=== PATIENT | female | born 1945 | race Caucasian/White ===

== ENCOUNTER → 2018-06-07 | Outpatient (CLI) | payer MEDICARE ==
--- NOTE | 2018-06-08 11:59 | BD ---
EXAMINATION TYPE: Axial Bone Density DATE OF EXAM: 06/07/2018 COMPARISON: NONE CLINICAL HISTORY: Height: 64 Weight: 229.4 FRAX RISK QUESTIONS: Alcohol (3 or more units per day): no Family History (Parent hip fracture): no Glucocorticoids (More than 3mos): no (Ex: prednisone, prednisolone, methylprednisolone, dexamethasone, and hydrocortisone). History of Fracture in Adulthood: no Secondary Osteoporosis: 1. Type 1 Diabetes: no 2. Hyperthyroidism: no 3. Menopause before 45: yes 4. Malnutrition: no 5. Chronic liver disease: no Rheumatoid Arthritis: no Current Tobacco Use: no RISK FACTORS HISTORY OF: Surgery to Spine/Hip(right/left)/Wrist (right/left): spine When: 2016 Family History of Osteoporosis: no Active: sometimes Diet low in dairy products/other sources of calcium: yes Postmenopausal woman: hysterectomy age 44 Take estrogen and/or progesterone medications: yes How lon years Lost more than 2 inches in height since high school: yes MEDICATIONS: blood pressure, omeprazole, gabapentin , estropipate Thyroid Medications: synthroid How Lon years Additional History: pt has lupus, neuropathy EXAM MEASUREMENTS: Bone mineral densitometry was performed using the [employer] System. Bone mineral density about the R hip (g/cm2): 1.128 Bone mineral density about the L hip (g/cm2): 1.090 T Score values are as follows: -----R Neck: 0.4 -----L Neck: 0.4 -----R Total: 1.0 -----L Total: 1.1 Bone mineral density baseline Bone mineral density about the L Wrist (g/cm2): 0.619 T Score values are as follows: -----Dist. R+U: 1.5 -----Prox. R+U: -1.6 -----Radius total: -0.9 Bone mineral density baseline IMPRESSION: Osteopenia (T Score between -2.5 and -1). There is slightly increased risk of fracture and the patient may be considered for treatment. Re-Screen 2-5 years. NOTE: T-SCORE=SD OF THE YOUNG ADULT MEAN.
--- NOTE | 2018-06-09 09:57 | MM ---
Reason for exam: screening (asymptomatic). Last mammogram was performed 1 year and 2 months ago. History: Family history of breast cancer in sister and breast cancer in grandmother. Benign excisional biopsy of both breasts. Taking estrogen for 28 years. Physical Findings: A clinical breast exam by your physician is recommended on an annual basis and results should be correlated with mammographic findings. MG 3D Screening Mammo W/Cad Bilateral CC and MLO view(s) were taken. Prior study comparison: April 07, 2017, mammogram. March 22, 2016, mammogram. The breast tissue is heterogeneously dense. This may lower the sensitivity of mammography. Finding: There are typically benign round, diffuse/scattered calcifications in both breasts. No significant changes in finding since April 07, 2017 and March 22, 2016. ASSESSMENT: Benign, BI-RAD 2 RECOMMENDATION: Routine screening mammogram of both breasts in 1 year.
== END | disposition home or self-care (01) ==
LOC: EDUNIT# 15:40 → RADMAMWWP 15:58
PROVIDERS: ATTEND Internal Medicine Geriatric Medicine
DX: Z12.31 Encounter for screening mammogram for malignant neoplasm of breast (principal); M85.832 Other specified disorders of bone density and structure, left forearm
CPT/HCPCS: 77063; 77067; 77080

== ENCOUNTER → 2019-08-23 | Outpatient (CLI) | payer MEDICARE, OTHER ==
--- NOTE | 2019-08-24 13:22 | MM ---
Reason for exam: screening (asymptomatic). Last mammogram was performed 1 year and 3 months ago. History: Patient is postmenopausal. Family history of breast cancer in sister and breast cancer in grandmother. Benign excisional biopsy of both breasts. Taking estrogen for 28 years. Physical Findings: A clinical breast exam by your physician is recommended on an annual basis and results should be correlated with mammographic findings. MG 3D Screening Mammo W/Cad Bilateral CC and MLO view(s) were taken. Prior study comparison: June 07, 2018, bilateral MG 3d screening mammo w/cad. April 07, 2017, mammogram. The breast tissue is heterogeneously dense. This may lower the sensitivity of mammography. There are similar benign appearing bilateral calcifications back to 2016. No suspicious abnormality. No significant changes when compared with prior studies. ASSESSMENT: Benign, BI-RAD 2 RECOMMENDATION: Routine screening mammogram of both breasts in 1 year.
== END | disposition home or self-care (01) ==
LOC: RADMAMWWP 12:36
PROVIDERS: ATTEND Internal Medicine Geriatric Medicine
DX: Z12.31 Encounter for screening mammogram for malignant neoplasm of breast (principal)
CPT/HCPCS: 77063; 77067

== ENCOUNTER → 2020-03-19 | Outpatient (CLI) | payer MEDICARE, OTHER ==
--- NOTE | 2020-03-20 16:00 | ECHOF ---
Referral Reason:R60.9 edema MEASUREMENTS -------- HEIGHT: 162.6 cm WEIGHT: 108.9 kg BP: IVSd: 1.3 cm (0.6 - 1.1) LVIDd: 2.9 cm (3.9 - 5.3) LVPWd: 1.6 cm (0.6 - 1.1) IVSs: 1.8 cm LVIDs: 2.0 cm LVPWs: 2.2 cm RVIDd: 3.3 cm (< 3.3) LAESV Index (A-L): 27.87 ml/m MV E Khanh: 0.58 m/s MV DecT: 229 ms MV A Khanh: 0.82 m/s MV E/A Ratio: 0.71 RAP: 5.00 mmHg RVSP: 25.69 mmHg FINDINGS -------- Sinus rhythm. This was a technically good study. The left ventricular size is normal. There is moderate concentric left ventricular hypertrophy. O verall left ventricular systolic function is normal with, an EF between 55 - 60 %. The diastolic fi lling pattern is normal for the age of the patient 13.91. The right ventricle is mildly enlarged. The left atrial size is normal. Normal LA size by volume 22+/-6 ml/m2. The right atrial size is normal. The aortic valve is trileaflet and appears structurally normal. The mitral valve is normal. There is trace mitral regurgitation. The tricuspid valve appears structurally normal. Mild tricuspid regurgitation present. Right vent ricular systolic pressure is normal at < 35 mmHg. There is no pulmonic regurgitation present. The aortic root size is normal. Normal inferior vena cava with normal inspiratory collapse consistent with estimated right atrial pre ssure of 5 mmHg. There is no pericardial effusion. CONCLUSIONS -------- 1. Sinus rhythm. 2. This was a technically good study. 3. The left ventricular size is normal. 4. There is moderate concentric left ventricular hypertrophy. 5. Overall left ventricular systolic function is normal with, an EF between 55 - 60 %. 6. The diastolic filling pattern is normal for the age of the patient 13.91 7. The right ventricle is mildly enlarged. 8. The left atrial size is normal. 9. Normal LA size by volume 22+/-6 ml/m2. 10. The right atrial size is normal. 11. The aortic valve is trileaflet and appears structurally normal. 12. The mitral valve is normal. 13. There is trace mitral regurgitation. 14. The tricuspid valve appears structurally normal. 15. Mild tricuspid regurgitation present. 16. Right ventricular systolic pressure is normal at < 35 mmHg. 17. There is no pulmonic regurgitation present. 18. The aortic root size is normal. 19. Normal inferior vena cava with normal inspiratory collapse consistent with estimated right atrial pressure of 5 mmHg. 20. There is no pericardial effusion. RATING OFFICER: Elaine Brito RDCS
== END | disposition home or self-care (01) ==
LOC: RADECHMAIN 12:11
PROVIDERS: ATTEND Internal Medicine Geriatric Medicine
DX: I08.1 Rheumatic disorders of both mitral and tricuspid valves (principal)
CPT/HCPCS: 93306

== ENCOUNTER → 2020-03-31 | Outpatient (CLI) | payer MEDICARE, OTHER ==
--- NOTE | 2020-03-31 09:09 | XR ---
Right foot HISTORY: L 97.512, G 60.3, neuropathy and tissue breakdown 3 views of the right foot Mild hallux valgus deformity is present with soft tissue swelling. Bone mineralization is reduced. No fracture or dislocation. No periostitis to suggest osteomyelitis. There is a plantar calcaneal spur. Degenerative changes are present at the tibiotalar joint, intertarsal joints. Soft tissue swelling n oted at the second digit distally. Digits are flexed which may limit sensitivity. IMPRESSION: Osteoarthritic changes, osteopenia. Plantar calcaneal spur. Soft tissue swelling.
== END | disposition home or self-care (01) ==
LOC: LABWHC1 08:03
PROVIDERS: ATTEND Podiatrist
DX: M19.071 Primary osteoarthritis, right ankle and foot (principal); M85.871 Other specified disorders of bone density and structure, right ankle and foot; M79.89 Other specified soft tissue disorders; L97.512 Non-pressure chronic ulcer of other part of right foot with fat layer exposed; G60.3 Idiopathic progressive neuropathy
CPT/HCPCS: 36415; 84134

== ENCOUNTER → 2020-04-23 | Outpatient (CLI) | payer MEDICARE, OTHER ==
--- NOTE | 2020-04-23 12:52 | MR ---
EXAMINATION TYPE: MR cervical spine wo con DATE OF EXAM: 04/23/2020 COMPARISON: None HISTORY: Neck pain, headaches, ataxia TECHNIQUE: Multiplanar, multisequence images of the cervical spine were acquired. C2-C3: No evidence for degenerative disc disease. No disc bulge/herniation or protrusion. No Canal stenosis. Foramina are patent bilaterally. C3-C4: Mild foraminal encroachment is present left greater than right, posterior circumferential disc bulge causes mild anterior mass effect on the thecal sac, no significant spinal stenosis. C4-C5: Posterior extension of endplate disc complex causes anterior mass effect on the thecal sac wit hout significant spinal stenosis, there is left-sided foraminal encroachment C5-C6: Extension of endplate disc complex causes anterior mass effect on the thecal sac with mild spi nal stenosis. There is bilateral foraminal encroachment due to uncovertebral joint hypertrophy, facet arthropathy change. C6-C7: Posterior extension endplate disc complex causes mild anterior mass effect on the thecal sac. No significant central stenosis. There is mild foraminal encroachment present. C7-T1: There is an anterolisthesis grade 1 C7-T1, minimal posterior disc bulge causes slight anterior mass effect on the thecal sac, mild to moderate spinal stenosis. Some foraminal encroachment is docu mented by the listhesis. Cervical segments are intact. There is anterolisthesis grade 1 C4-5, C3-4, retrolisthesis grade 1 C5 -6, there is a spinal curvature present in the thoracic spine, cervical spine. Cervical spinal cord is of normal signal. Cervical vertebral bodies show preserved height. There is multilevel spondylosis with endplate discogenic marrow signal change. Loss of disc height signal is greatest at C4-5, C5-6 and C6-7, C7-T1 greater than C3-4. Craniovertebral junction relationships are within normal limits. There is multilevel spondylosis. IMPRESSION: Generative disc disease, multilevel foraminal encroachment.
== END | disposition home or self-care (01) ==
LOC: RADMRIMAIN 09:37
PROVIDERS: ATTEND Psychiatry & Neurology Neurology
DX: M50.00 Cervical disc disorder with myelopathy, unspecified cervical region (principal)
CPT/HCPCS: 72141

== ENCOUNTER → 2020-04-24 | Outpatient (CLI) | payer MEDICARE, OTHER ==
--- NOTE | 2020-04-24 12:26 | MR ---
EXAMINATION TYPE: MR tspine/lspine wo/w con DATE OF EXAM: 04/24/2020 COMPARISON: None HISTORY: Myelopathy, ataxia, imbalance, hx surgery TECHNIQUE: Multiplanar, multisequence images of the thoracic and lumbar spine is performed without and with IV c ontrast, utilizing 10 mL intravenous Gadavist FINDINGS: Lumbar spine: There is extensive artifact due to patient's metallic hardware, posterior fusion change s are present L1-L4, there is ankylosis at L4-5. Anterolisthesis grade 1, laminectomies are present a t L5. There is no evident spinal stenosis. L5-S1 shows marked facet arthropathy. Circumferential posterior disc bulge is present which may conta ct the proximal S1 nerve roots. Circumferential lateral extension encroaches upon the foramina. L4-5: Listhesis contributes to cause some foraminal encroachment left greater than right. No evident disc herniation. Mild mass effect on the anterior cord due to the listhesis. There is some facet arth ropathy. L3-4: No disc herniation. Laminectomies are present. No evident foraminal encroachment. L2-3: No evident foraminal encroachment or disc herniation. L1-2: No evident foraminal encroachment or disc herniation. No abnormal enhancement following contrast menstruation. The conus is at T12-L1. Shows an unremarkabl e appearance. IMPRESSION: Postop changes and additional findings above. Facet arthropathy. Thoracic spine: Facet arthropathy changes are greatest at the lower thoracic spine but also at the melgar perior thoracic spine causing some posterior lateral mass effect on the thecal sac and C7-T1, T1-T2 3 , T3-4. There is a spinal curvature present. Thoracic vertebral bodies show mild anterior wedging at T6 and T7, mild kyphosis. There is multilevel spondylosis present. Loss of disc height signal is pres ent at the intervertebral levels with sparing of T11-12, T12-L1, there is multilevel endplate discoge carmina marrow signal change, there is normal cord signal. At T10-11 there is spinal stenosis present which is moderate to severe, hypertrophic changes of the f acets causes posterior lateral mass effect on the thecal sac, there is circumferential posterior exte nsion endplate disc complex, circumferential extension causes bilateral foraminal encroachment greate r on the left than on the right. Circumferential posterior disc bulge at T2-3 causes anterior mass effect on the thecal sac. No abnorm al enhancement following contrast administration. Thoracic cord signal is maintained. IMPRESSION: Degenerative disc disease, facet arthropathy.
== END | disposition home or self-care (01) ==
LOC: RADMRIMAIN 08:52
PROVIDERS: ATTEND Psychiatry & Neurology Neurology
DX: M51.26 Other intervertebral disc displacement, lumbar region (principal); M51.34 Other intervertebral disc degeneration, thoracic region; M47.816 Spondylosis without myelopathy or radiculopathy, lumbar region; M47.814 Spondylosis without myelopathy or radiculopathy, thoracic region; Z98.890 Other specified postprocedural states; Z98.1 Arthrodesis status; M43.26 Fusion of spine, lumbar region
CPT/HCPCS: 72157; 72158; A9585

== ENCOUNTER → 2020-10-06 | Outpatient (CLI) | payer MEDICARE, OTHER ==
--- NOTE | 2020-10-07 13:36 | MM ---
Reason for exam: screening (asymptomatic). Last mammogram was performed 1 year and 1 month ago. History: Patient is postmenopausal. Family history of breast cancer in sister and breast cancer in grandmother. Benign excisional biopsy of both breasts. Taking estrogen for 29 years. Physical Findings: A clinical breast exam by your physician is recommended on an annual basis and results should be correlated with mammographic findings. MG 3D Screening Mammo W/Cad Bilateral CC, MLO, and XCCL view(s) were taken. Prior study comparison: August 23, 2019, bilateral MG 3d screening mammo w/cad. June 07, 2018, bilateral MG 3d screening mammo w/cad. There are scattered fibroglandular densities. No significant changes when compared with prior studies. ASSESSMENT: Benign, BI-RAD 2 RECOMMENDATION: Routine screening mammogram of both breasts in 1 year.
== END | disposition home or self-care (01) ==
LOC: RADMAMWWP 15:38
PROVIDERS: ATTEND Internal Medicine Geriatric Medicine
DX: Z12.31 Encounter for screening mammogram for malignant neoplasm of breast (principal)
CPT/HCPCS: 77063; 77067

== ENCOUNTER → 2020-10-20 | Outpatient (CLI) | payer MEDICARE ==
--- NOTE | 2020-10-21 17:03 | BD ---
EXAMINATION TYPE: Axial Bone Density DATE OF EXAM: 10/20/2020 COMPARISON: NONE CLINICAL HISTORY: Height: 5 FT 3 IN Weight: 238 FRAX RISK QUESTIONS: Alcohol (3 or more units per day): NO Family History (Parent hip fracture): NO Glucocorticoids (More than 3mos): NO (Ex: prednisone, prednisolone, methylprednisolone, dexamethasone, and hydrocortisone). History of Fracture in Adulthood: NO Secondary Osteoporosis: 1. Type 1 Diabetes: NO 2. Hyperthyroidism: NO 3. Menopause before 45: YES 4. Malnutrition: NO 5. Chronic liver disease: NO Rheumatoid Arthritis: NOT KNOWN Current Tobacco Use: NO RISK FACTORS HISTORY OF: Surgery to Spine/Hip(right/left)/Wrist (right/left): SPINE SURG WITH HARDWARE When: MOST RECENT JUL 2020 Family History of Osteoporosis: NO Active: NO Diet low in dairy products/other sources of calcium: NO Postmenopausal woman: PART HYST AGE 44 Take estrogen and/or progesterone medications: YES How lon YEARS Lost more than 2 inches in height since high school: YES Frequent falls: NO MEDICATIONS: Thyroid Medications: YES Which medication: SYNTHROID How Long: OVER 30 YEARS Additional Medications: SYNTHROID, BLOOD PRESSURE MEDS, OMEPRAZOLE, GABAPENTIN, ESTOPIPATE Additional History:WALKS WITH A CANE FROM NEUROPATHY EXAM MEASUREMENTS: Bone mineral density about the R hip (g/cm2): 1.144 Bone mineral density about the L hip (g/cm2): 1.144 T Score values are as follows: -----R Neck: 0.8 -----L Neck: 0.8 -----R Total: 1.0 -----L Total: 1.1 Bone mineral density has: INCREASED 0.7 % since study of: 2018 Bone mineral density about the L Wrist (g/cm2): 0.718 T Score values are as follows: -----Dist. R+U: 1.7 -----Prox. R+U: 0.9 -----Radius total: 0.7 Bone mineral density has: INCREASED 30.9 % since study of: 2018 IMPRESSION: Normal (Values between +1 and -1 indicate normal bone mass). Consider repeating this study in 5 year s or sooner if there is some new clinical indication. NOTE: T-SCORE=SD OF THE YOUNG ADULT MEAN.
== END | disposition home or self-care (01) ==
LOC: RADBDWWP 16:06
PROVIDERS: ATTEND Internal Medicine Geriatric Medicine
DX: M81.0 Age-related osteoporosis without current pathological fracture (principal)
CPT/HCPCS: 77080

== ENCOUNTER → 2021-02-05 | Outpatient (CLI) | payer MEDICARE ==
--- NOTE | 2021-02-06 11:48 | ECHOF ---
Referral Reason:R60.9 Edema MEASUREMENTS -------- HEIGHT: 162.6 cm WEIGHT: 104.3 kg BP: RVIDd: 3.7 cm (< 3.3) IVSd: 1.3 cm (0.6 - 1.1) LVIDd: 3.9 cm (3.9 - 5.3) LVPWd: 1.1 cm (0.6 - 1.1) IVSs: 1.7 cm LVIDs: 2.0 cm LVPWs: 1.7 cm LAESV Index (A-L): 34.96 ml/m Ao Diam: 3.3 cm (2.0 - 3.7) AV Cusp: 1.8 cm (1.5 - 2.6) MV EXCURSION: 16.721 mm (> 18.000) MV EF SLOPE: 107 mm/s (70 - 150) EPSS: 0.6 cm MV E Khanh: 0.85 m/s MV DecT: 212 ms MV A Khahn: 0.65 m/s MV E/A Ratio: 1.32 RAP: 5.00 mmHg RVSP: 34.14 mmHg FINDINGS -------- Sinus rhythm. This was a technically adequate study. The left ventricular size is normal. There is mild concentric left ventricular hypertrophy. Overa ll left ventricular systolic function is normal with, an EF between 55 - 60 %. The diastolic fillin g pattern is normal for the age of the patient 11.61. The right ventricle is mildly enlarged. LA is moderately dilated 34-39 ml/m2 The right atrial size is normal. Interatrial and interventricular septum intact. The aortic valve is trileaflet and appears structurally normal. There is no evidence of aortic regu rgitation. There is no evidence of aortic stenosis. Hned-[id number]-[id number] mitral regurgitation is present. Mild tricuspid regurgitation present. There is borderline pulmonary artery hypertension. The righ t ventricular systolic pressure, as measured by Doppler, is 34.14mmHg. There is no pulmonic regurgitation present. The aortic root size is normal. IVC Not well visulized. There is no pericardial effusion. CONCLUSIONS -------- 1. The left ventricular size is normal. 2. There is mild concentric left ventricular hypertrophy. 3. Overall left ventricular systolic function is normal with, an EF between 55 - 60 %. 4. The right ventricle is mildly enlarged. 5. LA is moderately dilated 34-39 ml/m2 6. The right atrial size is normal. 7. Meri-pr-wqwsyiwt mitral regurgitation is present. 8. Mild tricuspid regurgitation present. 9. There is borderline pulmonary artery hypertension. BOILER BLOWER: Elaine Brito RDCS
== END | disposition home or self-care (01) ==
LOC: RADECHMAIN 15:46
PROVIDERS: ATTEND Internal Medicine Geriatric Medicine
DX: I08.1 Rheumatic disorders of both mitral and tricuspid valves (principal)
CPT/HCPCS: 93306

== ENCOUNTER → 2021-06-20 | Outpatient (CLI) | payer MEDICARE | END | disposition home or self-care (01) | LOC: LABWHC1 10:01 | PROVIDERS: ATTEND Psychiatry & Neurology Neurology | DX: E11.42 Type 2 diabetes mellitus with diabetic polyneuropathy (principal); G60.8 Other hereditary and idiopathic neuropathies; R26.9 Unspecified abnormalities of gait and mobility | CPT/HCPCS: 36415; 82607; 84295 ==

== ENCOUNTER → 2021-08-20 | Outpatient (CLI) | payer MEDICARE ==
--- NOTE | 2021-08-20 08:50 | CT ---
EXAMINATION TYPE: CT brain wo con, CT facial bones wo con DATE OF EXAM: 08/20/2021 HISTORY: COLE, Lt orbital swelling and pain post fall CT DLP: 1793 mGycm. Automated Exposure Control for Dose Reduction was Utilized. TECHNIQUE: CT scan of the head and facial bones are performed without contrast. COMPARISON: None. FINDINGS: There is no acute intracranial hemorrhage or midline shift identified. There is mild-to-m oderate diffuse ventricular and sulcal prominence consistent with diffuse age-related cerebral atroph y. There is mild low-attenuation in the periventricular white matter consistent with chronic small v essel ischemic change. Bilateral basal ganglia calcifications are present. The calvarium is intact. Visualized portion of mandible is intact. The temporomandibular joints are maintained bilaterally. Th e zygomatic arches are intact. The nasal bones are intact. The orbital floors and ho are intact bi laterally. The globes are intact bilaterally. Intraconal fat is preserved. The pterygoid plates are i ntact. The paranasal sinuses are grossly clear. Nasal septum slightly deviated to right of midline. IMPRESSION: 1. No acute intracranial hemorrhage or midline shift. There is mild to moderate diffuse age-related cerebral atrophy and mild chronic small vessel ischemic change noted. 2. No acute or subacute displaced facial bone fracture.
== END | disposition home or self-care (01) ==
LOC: RADCTMAIN 08:08
PROVIDERS: ATTEND Internal Medicine Geriatric Medicine
DX: I67.82 Cerebral ischemia (principal)
CPT/HCPCS: 70450; 70486

== ENCOUNTER → 2022-05-13 | Outpatient (CLI) | payer MEDICARE ==
--- NOTE | 2022-05-14 16:36 | MM ---
Reason for Exam: Screening (asymptomatic). Last mammogram was performed 1 year(s) and 7 month(s) ago. Patient History: Menarche at age 12. First Full-Term at age 24. Left ovary removed at age 44. Hysterectomy at age 44. Postmenopausal. Patient has history of breast feeding. Currently using Estrogen, for 29 years. Bilateral Benign Excisional Biopsy. Paternal grandmother had breast cancer. Sister had breast cancer under age 50. Risk Values: Coby 5 year model risk: 4.4%. NCI Lifetime model risk: 9.9%. Prior Study Comparison: 04/07/2017 Screening Mammogram, Unknown. 06/07/2018 Bilateral Screening Mammogram, [facility]. 08/23/2019 Bilateral Screening Mammogram, [facility]. 10/06/2020 Bilateral Screening Mammogram, [facility]. Tissue Density: The breast tissue is heterogeneously dense. This may lower the sensitivity of mammography. Findings: Analyzed By CAD. There are scattered benign punctate calcifications present. No suspicious cluster of microcalcifications is evident. Benign spherical calcifications are present. No significant interval changes. No suspicious groups of microcalcifications, spiculated or lobular masses, architectural distortion or other secondary signs of malignancy are mammographically apparent. Overall Assessment: Benign, BI-RAD 2 Management: Screening Mammogram of both breasts in 1 year. A negative mammogram report should not preclude additional follow up of suspicious palpable abnormalities. Patient should continue monthly self breast exam. A clinical breast exam by your physician is recommended on an annual basis and results should be correlated with mammographic findings. Electronically signed and approved by: Thomas Arboleda D.O. Radiologis
== END | disposition home or self-care (01) ==
LOC: RADMAMWWP 09:09
PROVIDERS: ATTEND Internal Medicine Geriatric Medicine
DX: Z12.31 Encounter for screening mammogram for malignant neoplasm of breast (principal); Z78.0 Asymptomatic menopausal state; Z80.3 Family history of malignant neoplasm of breast
CPT/HCPCS: 77063; 77067

== ENCOUNTER → 2022-05-28 | Outpatient (CLI) | payer MEDICARE ==
[2022-05-28 12:10] LABS: Partial Thromboplastin Time 24.3 sec (22.0-30.0); Prothrombin Time 11.2 sec (9.0-12.0)
[2022-05-28 14:35] LABS: HCT 41.5 % (37.2-46.3); HGB 13.4 g/dL (12.0-15.0); MCH 30.4 pg (27.0-32.0); MCHC 32.3 g/dL (32.0-37.0); MCV 94.1 fL (80.0-97.0); Mean Platelet Volume 9.5 fL (9.5-12.2); NRBC Per 100 WBC 0 /100 WBCS (0.0-0.0); Platelet Count 231 X 10*3/uL (140-440); RBC 4.41 X 10*6/uL (4.10-5.20); RDW 12.9 % (11.5-14.5)
[2022-05-28 14:45] LABS: African American GFR (CKD) 76.8 (60.0-200.0); Albumin 4.9 g/dL (3.8-4.9); Albumin/Globulin Ratio 1.98 (1.60-3.17); Anion Gap 10.5 mmol/L (10.00-18.00); BUN/Creat Ratio 28.04 Ratio (12.00-20.00); Blood Urea Nitrogen 24.2 mg/dL (9.0-27.0); Calcium 9.9 mg/dL (8.7-10.3); Carbon Dioxide 26.5 mmol/L (20.0-27.5); Globulin 2.5 g/dL (1.6-3.3); Non-African American GFR(CKD) 66.3 (60.0-200.0); Total Bilirubin 0.4 mg/dL (0.30-1.20); Total Protein 7.4 g/dL (6.2-8.2)
[2022-05-28 16:02] LABS: Appearance,Urine Clear (Clear); Bilirubin,Urine Negative (Negative); Blood,Urine Negative (Negative); Color,Urine Yellow (Yellow); Ketones,Urine Negative (Negative); Nitrite,Urine Negative (Negative); PH, Urine 7.5 (5.0-8.0); Specific Gravity,Urine 1.006 (1.001-1.030); Urobilinogen,Urine 0.2 (0.2,1.0)
== END | disposition home or self-care (01) ==
LOC: LABPAT 10:43
PROVIDERS: ATTEND Orthopaedic Surgery
DX: Z01.812 Encounter for preprocedural laboratory examination (principal); M17.12 Unilateral primary osteoarthritis, left knee
CPT/HCPCS: 80053; 81003; 85027; 85610; 85730; 87070

== ENCOUNTER 2022-06-08 07:31 | Observation (INO) | payer MEDICARE ==
[2022-06-07 13:09] VITALS: BMI 39.4
[~2022-06-08 07:31] MED LIST: ACETAMINOPHEN TAB 500 MG TAB PO PRN; GABAPENTIN 300 MG CAP PO PRN; LIDOCAINE 1% (10MG/ML) FOR IV START INTRADERMA PRN; MELOXICAM 7.5 MG TAB PO PRN; ONDANSETRON 4 MG/2 ML VIAL IVP ONE; TRANEXAMIC ACID IN NACL,ISO-OS 1,000 MG in SALINE 1 100ML.BAG IVPB PRN
[2022-06-08] MEDS: LACTATED RINGERS 1,000 ML IV SCH (08:15)
[2022-06-08] MEDS ORDERED: MIDAZOLAM 2 MG/2 ML VIAL IVP ONE (08:45)
[2022-06-08] MEDS ORDERED: ROPIVACAINE 5 MG/ML 30 ML VIAL ONE (09:26)
[2022-06-08] MEDS ORDERED: SODIUM CHLORIDE 0.9% (PF) 10 ML VIAL ONE (09:26)
[2022-06-08] MEDS ORDERED: PROPOFOL 10 MG/ML 20 ML VIAL IV ONE (09:26)
[2022-06-08] MEDS ORDERED: LIDOCAINE 2% INJ 20 MG/ML (2 ML VIAL) ONE (09:26)
[2022-06-08] MEDS ORDERED: MIDAZOLAM 2 MG/2 ML VIAL ONE (09:26)
[2022-06-08] MEDS ORDERED: ROCURONIUM 10 MG/ML (5 ML VIAL) IV ONE (09:26)
[2022-06-08] MEDS ORDERED: TRANEXAMIC ACID IN NACL,ISO-OS 1,000 MG/100 ML BAG ONE (09:26)
[2022-06-08] MEDS ORDERED: fentaNYL (PF) 50 MCG/ML 2 ML AMP ONE (09:26)
[2022-06-08] MEDS ORDERED: KETAMINE 10 MG/ML 20 ML VIAL ONE (09:26)
[2022-06-08] MEDS ORDERED: GLYCOPYRROLATE 0.2 MG/ML 2 ML VIAL ONE (09:26)
[2022-06-08] MEDS ORDERED: ceFAZolin 1,000 MG in SODIUM CHLORIDE 0.9% 1,000 ML IRRIGATION ONE (09:26)
[2022-06-08] MEDS ORDERED: NEOSTIGMINE 1 MG/ML 10 ML VIAL ONE (09:26)
--- NOTE | 2022-06-08 09:46 | P.ANPRN ---
Procedure Note - Anesthesia - Nerve Block Performed Left Adductor Canal Time Out Performed: Yes (08:45) Date of Procedure: 06/08/22 Procedure Start Time: Procedure Stop Time: Location of Patient: PreOp Indication: Acute Post-Operative Pain, Requested by Surgeon (Dr Remi Mcneal) Sedation Type: Sedate with meaningful contact maintained Preparation: Sterile Prep, Sterile Dressing Position: Supine Catheter: Indwelling Needle Types: Pajunk Needle Gauge: 21 Ultrasound used to visualize needle placement: Yes Ultrasound used to observe medication spread: Yes Injectate: 0.5% Ropivacaine (see comment for volume) (15cc) Blood Aspirated: No Pain Paresthesia on Injection Noted: No Resistance on Injection: Normal Image Stored and Saved: Yes Events: Uneventful and Well Tolerated
--- NOTE | 2022-06-08 09:47 | P.ANPRN ---
Procedure Note - Anesthesia - Nerve Block Performed Left iPack Time Out Performed: Yes Date of Procedure: 06/08/22 Procedure Start Time: 08:54 Procedure Stop Time: 08:59 Location of Patient: PreOp Indication: Acute Post-Operative Pain, Requested by Surgeon (Dr Remi Mcneal) Sedation Type: Sedate with meaningful contact maintained Preparation: Sterile Prep Position: Supine Catheter: None Needle Types: Pajunk Needle Gauge: 21 Ultrasound used to visualize needle placement: Yes Ultrasound used to observe medication spread: Yes Injectate: 0.5% Ropivacaine (see comment for volume) (15cc + 5 cc PF Normal saline) Blood Aspirated: No Pain Paresthesia on Injection Noted: No Resistance on Injection: Normal Image Stored and Saved: Yes Events: Uneventful and Well Tolerated
[2022-06-08] MEDS ORDERED: LACTATED RINGERS 1,000 ML IV ONE (10:22)
--- NOTE | 2022-06-08 10:40 | P.OP ---
Date of Procedure: 06/08/22 Preoperative Diagnosis: Severe osteoarthritis left knee Postoperative Diagnosis: Severe osteoarthritis left knee Procedure(s) Performed: Left total knee arthroplasty Implants: [employer] Journey II CR Oxinium cruciate retaining femoral component size 6, left [employer] Journey nonporous tibial baseplate size 5, left [employer] Journey II, XLPE Deep Dished articular insert, size11 mm, Size 5- 6, left [employer] [place] II resurfacing patellar component, oval, 32 mm All components were cemented using Palacos R bone cement The articulation is Oxinium on polyethylene Anesthesia: ALANNA Surgeon: Remi Mcneal Color Print Inspector #1: Tj Enciso Estimated Blood Loss (ml): 50 Pathology: other (Bone and cartilage) Condition: stable Disposition: PACU Indications for Procedure: After failure of conservative treatment we discussed the surgical and nonsurgical treatment options at length. Patient wishes to proceed with a total knee arthroplasty. Complications specific to this procedure were discussed at length, including but not limited to infection, bleeding, stiffness, and nerve injury. Covid-19 was also discussed at length with the patient, and they are aware of the current policies and procedures. The patient was given the option of delaying surgery, but they elect to proceed knowing these risks. Patient is aware of all these complications and informed consent was obtained Operative Findings: The operative findings are consistent with severe osteoarthritis of the left knee Description of Procedure: Patient was seen in the preoperative area and the consent was reviewed and the operative site was marked with a skin marker. The patient verified the procedure and the operative site. An adductor canal pain catheter and an iPACK block was placed by anesthesia in the preoperative area. The patient was then brought to the operating room and given preoperative antibiotics intravenously. A gram of transexamic acid was given intravenously. A general anesthetic was administered by the anesthesia department. A tourniquet was placed on the upper thigh and the lower extremity was prepped with chlorhexidine and draped in usual sterile fashion. A universal timeout was then performed which confirmed the patient's name, surgical site, ALLERGIES, and consent. The lower extremity was then exsanguinated and tourniquet was inflated to 250 mmHg. A standard anterior midline approach to the knee was performed. The skin and subcutaneous tissue were sharply dissected down to the patellar tendon. A medial parapatellar arthrotomy was then performed. The knee was then extended, the patellar was everted, and the knee was again flexed. The infra-patellar fat pad was removed in order to enhance exposure. The anterior horns of both menisci were excised, and a release was performed to the posterior medial aspect of the knee. On gross visual inspection, there was complete loss of articular cartilage in the medial and patellofemoral joint spaces. There was also significant cartilage damage in the lateral compartment. There were multiple periarticular osteophytes globally about the knee which were then removed with a Ronguer. The femoral canal was then opened with the 9.5 mm intramedullary drill. The 8 mm intramedullary rosa was then inserted into the femoral canal with the distal femoral cutting guide set for 5 of valgus. The distal femoral cutting block was then pinned in place. The intramedullary rosa was then removed, and the distal femur was then cut. The cutting block was then removed and the cut was checked for symmetry. The resected bone was then measured to confirm the appropriate distal femoral resection. Next, the sizing guide was then placed and set for 3 external rotation based off of the epicondylar axis and Whitesides line. Pins were then placed and the drill holes, and the femur was sized with the sizing stylus. The pins were then removed, and the sizing guide was then removed. The spikes of the femoral block was then placed into the predrilled holes, and malleted into place. Two 45 mm pins were then placed into the fixation holes on the cutting block. An nilson wing was then used to ensure there would be no notching with the anterior cut. The anterior condyles were cut without notching. The anterior chord cut was then performed, followed by the posterior cut, posterior chamfer cut, and the anterior chamfer cut. The collateral ligaments were protected during the entire process. The cutting block was then removed. Any remaining bone and osteophytes were removed from the femur with a Ronguer. The femoral canal was plugged with autologous bone. Attention was then directed to the tibia. The remaining ACL was removed with a Ronguer, and the tibia was then gently subluxed forward with a large bent knee retractor. Any remaining menisci were excised. The posterior lateral corner was cauterized in order to coagulate the lateral geniculate artery. The extra medullary tibial cutting guide was then placed, set for the appropriate rotation, slope, and depth of resection. The proximal tibia cutting guide was then pinned in place. Proximal tibia was then cut and sized. The femoral trial was placed. A narrow saw blade was then used to remove the anterior intracondylar femoral bone. The CR notch trial was then placed. The tibial trial was placed with the appropriate-sized insert. The knee was able to fully extend and flex to 130 and was stable throughout all range of motion. The knee was then extended and the patella was everted. Patella was then measured, and then using an osteotomy guide, the patella was cut at the appropriate level. The patella was then measured and drilled and the patella trial was then placed. The knee was then taken through range of motion with the patella trial and the patella tracked normally using the no thumbs technique. The knee was then extended patella trial was then removed and the patella was everted. Knee was then flexed and lug holes were drilled through the femoral trial and the femoral trial was then removed. The tibial was then re-exposed, and the tibial broach guide was then pinned in place after it was set for the appropriate rotation to allow for the most coverage without overhang. The tibia was then reamed and broached. The cut surfaces of bone were then irrigated with pulsatile lavage. The knee was also irrigated with Irrisept solution. The components were then opened, the cement was mixed, and the components were then cemented in place. The cement was allowed to harden with the knee in full extension. After the cemented hardened, the tourniquet was released and hemostasis was obtained. A second gram of transexamic acid was given intravenously. The knee was again irrigated. The knee was again taken through range of motion and found to be stable throughout all range of motion of 0-130, and the patella tracked normally. The fascia was then closed with 0 Vicryl followed by #2 strata fix suture. The subcutaneous tissue was closed with 3-0 Vicryl and 3-0 strata fix. Exofin glue was used for the skin and placed with the knee in flexion. After the glue had dried, and Optafoam silver impregnated dressing was applied. The patient was then transferred to recovery room in stable condition. The admissions assistant MERCY Schmitz was required due the complexity surgery and the need for a skilled traffic assistant. She assisted in positioning, draping, retraction, and closure of the wound.
[2022-06-08] MEDS ORDERED: NALOXONE 0.4 MG/ML 1 ML VIAL IV PRN (11:12)
[2022-06-08] MEDS ORDERED: HYDROmorphone 0.5 MG/0.5 ML SYRINGE IVP PRN ×2 (11:12)
[2022-06-08] MEDS ORDERED: ONDANSETRON 4 MG/2 ML VIAL IVP PRN (11:12)
[2022-06-08] MEDS ORDERED: ROPIVACAINE 0.2%-NS ON-Q PUMP 1,090 MG, EMPTY PAIN BALL 1 EACH MISCELLANE PRN (11:17)
[2022-06-08] MEDS: fentaNYL (PF) 50 MCG/ML 2 ML AMP IV PRN ×2 (11:40→12:07)
--- NOTE | 2022-06-08 12:20 | XR ---
EXAMINATION TYPE: XR knee limited LT DATE OF EXAM: 06/08/2022 12:06 PM INDICATION: Patient age:Female; 76 years old; Reason for study: Evaluation for Postop abnormality and alignment; PHH. COMPARISON: None. TECHNIQUE: The Left knee(s) was examined in 2 projections. Frontal, and lateral. FINDINGS: Status post left total knee arthroplasty changes with hardware in appropriate alignment an d intact. No evidence of fracture. Subcutaneous lucencies and lucencies within the joint consistent w ith surgical changes. IMPRESSION: Status post total knee arthroplasty changes with hardware intact and appropriate alignment. No fractu res identified.
[2022-06-08] MEDS ORDERED: diphenhydrAMINE 50 MG/ML 1 ML VIAL IVP ONE (12:55)
[2022-06-08] MEDS: HYDROmorphone 0.5 MG/0.5 ML SYRINGE IVP PRN ×3 (12:55→17:39)
[2022-06-08] MEDS: hydrOXYzine pamoate 25 MG CAP PO PRN (17:41)
[2022-06-08] MEDS: SENNOSIDES-DOCUSATE SODIUM 1 EACH TAB PO SCH (19:31)
[2022-06-08] MEDS: ASPIRIN 325 MG TAB PO SCH (19:31)
[2022-06-08] MEDS: traMADol 50 MG TAB PO PRN (23:23)
[2022-06-09] MEDS: HYDROmorphone 0.5 MG/0.5 ML SYRINGE IVP PRN (02:27)
[2022-06-09] MEDS: LACTATED RINGERS 1,000 ML IV SCH (07:04)
[2022-06-09] MEDS ORDERED: ASPIRIN-ACET-CAFF 250-250-65MG 1 EACH TAB PO PRN (07:15)
[2022-06-09] MEDS: hydrOXYzine pamoate 25 MG CAP PO PRN (07:18)
[2022-06-09] MEDS: traMADol 50 MG TAB PO PRN ×2 (07:19→13:47)
[2022-06-09] MEDS: ASPIRIN 325 MG TAB PO SCH ×2 (07:19→19:02)
[2022-06-09] MEDS: KETOROLAC 15 MG/ML 1 ML VIAL IVP SCH ×4 (08:57→22:45)
[2022-06-09] MEDS ORDERED: MELATONIN 5 MG TABLET PO PRN (09:18)
--- NOTE | 2022-06-09 09:40 | P.PN ---
Progress Note - Text The patient is status post left adductor canal catheter placement. The catheter was placed for postoperative pain control, status post total knee arthroplasty. Ropivacaine 0.2% is infusing at 8 mLs per hour. The patient has no complaints of left lower extremity numbness or weakness. Patient's VAS score is 6-7--10. Assessment: The patient is experiencing generalized knee pain. Plan: continue infusion and increase the rate to 10 ML's per hour. The patient is also receiving supplemental medicine per the service for pain.
[2022-06-09] MEDS: DULoxetine HCL 30 MG CAPSULE.DR PO SCH (10:28)
[2022-06-09] MEDS: LEVOTHYROXINE 100 MCG TAB PO SCH (10:28)
[2022-06-09] MEDS: OXcarbazepine 300 MG TAB PO SCH ×3 (10:28→22:45)
[2022-06-09] MEDS ORDERED: traMADol 50 MG TAB PO STA (10:29)
[2022-06-09 10:49] LABS: Basophils # (A) 0.02 X 10*3/uL (0.00-0.10); Basophils % (A) 0.2 %; Eosinophils # (A) 0.05 X 10*3/uL (0.04-0.35); Eosinophils % (A) 0.6 %; HCT 33.1 % (37.2-46.3); HGB 10.9 g/dL (12.0-15.0); Immature Grans, Automated 0.2 %; Lymphocytes # (A) 1.04 X 10*3/uL (0.90-5.00); Lymphocytes % (A) 12.4 %; MCH 31.1 pg (27.0-32.0); MCHC 32.9 g/dL (32.0-37.0); MCV 94.6 fL (80.0-97.0); Mean Platelet Volume 9.6 fL (9.5-12.2); Monocytes % (A) 7.1 %; NRBC Per 100 WBC 0 /100 WBCS (0.0-0.0); Neutrophils # (A) 6.67 X 10*3/uL (1.80-7.70); Neutrophils % (A) 79.5 %; Platelet Count 175 X 10*3/uL (140-440); RDW 13.1 % (11.5-14.5)
[2022-06-09] MEDS ORDERED: BUTALB/APAP/CAFF 50-325-40MG TAB PO PRN (12:33)
[2022-06-09] MEDS ORDERED: OXcarbazepine 300 MG TAB PO SCH (16:00)
[2022-06-09] MEDS: SENNOSIDES-DOCUSATE SODIUM 1 EACH TAB PO SCH (19:01)
[2022-06-09] MEDS: FENOFIBRATE 54 MG TAB PO SCH (19:02)
--- NOTE | 2022-06-09 23:06 | P.CONS ---
History of Present Illness - History of Present Illness This is a pleasant 76 years old female with multiple medical problems including migraine headache, hypertension, hyperlipidemia, GERD, sleep apnea, hyperthyroidism presents with severe osteoarthritis of the left knee joint and she underwent left total knee arthroplasty. Today is postoperative day #1. She still complaining of from significant pain at the surgical site, later on in the day she developed headache similar to her migraine headache started on the right side of the eye and goes around to the whole head, which is similar to her previous migraine attacks. Fioricet is added. Hemoglobin 10. Blood pressure is borderline therefore her home blood pressure medication were held Review of Systems Review of systems CONSTITUTIONAL: No fever, no malaise, no fatigue. HEENT: No recent visual problems or hearing problems. Denied any sore throat. CARDIOVASCULAR: No orthopnea, PND, no palpitations, no syncope. PULMONARY: No shortness of breath, no cough, no hemoptysis. GASTROINTESTINAL: No diarrhea, no nausea, no vomiting, no abdominal pain. Normoactive bowel sounds. NEUROLOGICAL: No headaches, no weakness, no numbness. HEMATOLOGICAL: Denies any bleeding or petechiae. GENITOURINARY: Denies any burning micturition, frequency, or urgency. MUSCULOSKELETAL/RHEUMATOLOGICAL: Denies any joint pain, swelling, or any muscle pain. ENDOCRINE: Denies any polyuria or polydipsia. Past Medical History Past Medical History: GERD/Reflux, Hyperlipidemia, Hypertension, Sleep Apnea/CPAP/BIPAP, Thyroid Disorder Additional Past Medical History / Comment(s): MIGRAINE HEADACHE, C PAP MACHINE, NEUROPATHY ,BACK PAIN History of Any Multi-Drug Resistant Organisms: None Reported Past Surgical History: Bowel Resection, Breast Surgery, Hysterectomy Additional Past Surgical History / Comment(s): BREAST BIOPSIES X7, TOTAL RIGHT KNEE Past Anesthesia/Blood Transfusion Reactions: Previous Problems w/ Anesthesia, Postoperative Nausea & Vomiting (PONV) Additional Past Anesthesia/Blood Transfusion Reaction / Comm: TAKES LONGER TO WAKE UP, Smoking Status: Never smoker - Past Family History Father Family Medical History: Cancer Sister(s) Family Medical History: Cancer Brother(s) Family Medical History: Cancer Medications and Allergies Home Medications Medication Instructions Recorded Confirmed Type Atorvastatin [Lipitor] 10 mg PO DAILY 06/07/22 06/07/22 History Bumetanide [BUMEX] 2 mg PO DAILY 06/07/22 06/07/22 History Cholecalciferol [Vitamin D3 (25 50 mcg PO DAILY 06/07/22 06/07/22 History Mcg = 1000 Iu)] Cyanocobalamin (Vitamin B-12) 2,000 mcg PO DAILY 06/07/22 06/07/22 History [Vitamin B-12] DULoxetine HCL [Cymbalta] 30 mg PO DAILY 06/07/22 06/07/22 History Fenofibrate [Lofibra] 54 mg PO BID 06/07/22 06/07/22 History Levothyroxine Sodium [Synthroid] 100 mcg PO DAILY 06/07/22 06/07/22 History Melatonin 5 mg PO HS 06/07/22 06/08/22 History Meloxicam [Mobic] 15 mg PO DAILY 06/07/22 06/07/22 History Metoprolol Succinate (ER) [Toprol 100 mg PO HS 06/07/22 06/08/22 History Xl] Multivitamins, Thera [Multivitamin 1 tab PO DAILY 06/07/22 06/07/22 History (formulary)] OXcarbazepine [Trileptal] 300 mg PO TID 06/07/22 06/08/22 History Omeprazole 20 mg PO DAILY 06/07/22 06/08/22 History Oxybutynin ER [Ditropan Xl] 10 mg PO DAILY 06/07/22 06/07/22 History Turmeric Root Extract [Turmeric] 1,500 mg PO DAILY 06/07/22 06/07/22 History estradioL 1 mg PO DAILY 06/07/22 06/07/22 History Aspirin 325 mg PO BID 30 Days #60 tab 06/08/22 Rx Celecoxib [CeleBREX] 200 mg PO DAILY #30 cap 06/08/22 Rx Ondansetron Odt [Zofran Odt] 4 mg PO Q8HR PRN #14 tab 06/08/22 Rx Sennosides-Docusate Sodium 1 tab PO BID #60 tablet 06/08/22 Rx [Senokot-S] traMADol HCL 50 mg PO Q4-6H 7 Days #32 tab 06/08/22 Rx Allergies Allergy/AdvReac Type Severity Reaction Status Date / Time allopurinol Allergy Rash/Hives Verified 06/08/22 07:59 bee venom protein (honey bee) Allergy Swelling Verified 06/08/22 07:59 codeine Allergy Rash/Hives, Verified 06/08/22 07:59 HYPER hydrocodone Allergy Rapid Verified 06/08/22 07:59 Heart Rate, RASH hydromorphone [From Dilaudid] Allergy Rash/Hives Verified 06/08/22 08:00 hydroxychloroquine Allergy Rash/Hives, Verified 06/08/22 07:59 [From Plaquenil] RAPID HEARTBEAT meperidine [From Demerol] Allergy Rash/Hives Verified 06/08/22 07:59 morphine Allergy Nausea & Verified 06/08/22 07:59 Vomiting, RASH nitrofurantoin Allergy Rash/Hives Verified 06/08/22 07:59 [From Macrobid] oxycodone Allergy Rash/Hives Verified 06/08/22 08:22 Sulfa (Sulfonamide Allergy Rash/Hives,VERY Verified 06/08/22 07:59 Antibiotics) HYPER MOSQUITO,NO SEEUMS, WASP, AdvReac Swelling,ITCHING, Uncoded 06/08/22 07:59 HORNETS CELLULITIS Physical Exam Vitals: Vital Signs Temp Pulse Pulse Resp BP Pulse Ox 06/09/22 01:54 98 F 81 16 123/57 97 06/08/22 20:12 97.5 F L 67 16 126/53 95 06/08/22 16:01 56 L 16 127/67 99 06/08/22 15:31 55 L 16 118/64 99 06/08/22 15:01 53 L 14 126/62 98 06/08/22 14:30 55 L 14 125/64 100 06/08/22 14:03 54 L 16 125/65 100 06/08/22 13:34 52 L 16 122/67 100 06/08/22 12:32 51 L 14 115/70 99 06/08/22 12:01 52 L 16 115/65 99 06/08/22 11:49 52 L 16 117/73 98 06/08/22 11:34 54 L 16 129/85 98 06/08/22 11:15 59 L 14 131/59 97 06/08/22 11:08 97.0 F L 59 L 14 125/69 94 L 06/08/22 09:09 55 L 16 137/71 99 06/08/22 08:25 66 16 97 06/08/22 08:06 97.0 F L 58 L 16 135/66 97 Intake and Output 06/08/22 06/08/22 06/09/22 14:59 22:59 06:59 Intake Total 1751 150 Output Total 50 960 Balance 1701 -960 150 Intake: IV 1751 Oral 150 Output: Urine 500 Straight 450 Post Void Residual 460 Estimated Blood Loss 50 Other: # Voids 1 Weight 103.1 kg 103.1 kg -GENERAL: The patient is alert and oriented x3, not in any acute distress. Obese HEENT: Pupils are round and equally reacting to light. EOMI. No scleral icterus. No conjunctival pallor. Normocephalic, atraumatic. No pharyngeal erythema. No thyromegaly. CARDIOVASCULAR: S1 and S2 present. No murmurs, rubs, or gallops. PULMONARY: Chest is clear to auscultation, no wheezing or crackles. ABDOMEN: Soft, nontender, nondistended, normoactive bowel sounds. No palpable organomegaly. -MUSCULOSKELETAL: No joint swelling or deformity. Left knee wound with dressing in place, rest of exam is deferred to surgery team EXTREMITIES: No cyanosis, clubbing, or pedal edema. NEUROLOGICAL: Gross neurological examination did not reveal any focal deficits. SKIN: No rashes. no petechiae. Results CBC & Chem 7: 06/09/22 07:01 Assessment and Plan Assessment: Severe osteoarthritis of the left knee status post total knee arthroplasty Migraine headache Hypertension, her currently her blood pressure is borderline Postop blood loss anemia expected Hypothyroidism Estimated GERD Hyperlipidemia Plan: This is a pleasant 76 years old female status post left total knee arthroplasty. Continue with pain management and DVT prophylaxis as per primary team. Start Urised for her headache Continue with aspirin Blood pressure start improving therefore we can start her home dose of metoprolol 100 mg but lower the dose so start 25 mg Labs and medication were reviewed.. Continue same treatment. Continue with symptomatic treatment. Resume home medication. Monitor lytes and vitals. DVT and GI prophylaxis. Further recommendations as per clinical course of the patient DVT prophylaxis: per surgery team GI prophylaxis,
[2022-06-10] MEDS: METOPROLOL TARTRATE 25 MG TAB PO SCH ×2 (01:14→08:29)
[2022-06-10] MEDS: KETOROLAC 15 MG/ML 1 ML VIAL IVP SCH ×2 (05:14→12:09)
[2022-06-10] MEDS: LEVOTHYROXINE 100 MCG TAB PO SCH (05:14)
[2022-06-10 08:18] VITALS: BP 140/71; PULSE 69; RESP 18; TEMP 99.1
[2022-06-10] MEDS: LACTATED RINGERS 1,000 ML IV SCH (08:20)
[2022-06-10] MEDS: ASPIRIN 325 MG TAB PO SCH (08:26)
[2022-06-10] MEDS: traMADol 50 MG TAB PO PRN ×2 (08:26→13:53)
[2022-06-10] MEDS: FENOFIBRATE 54 MG TAB PO SCH (08:27)
[2022-06-10] MEDS: DULoxetine HCL 30 MG CAPSULE.DR PO SCH (08:27)
[2022-06-10] MEDS: OXcarbazepine 300 MG TAB PO SCH (08:27)
[2022-06-10] MEDS ORDERED: CHOLECALCIFEROL 25 MCG (1000 IU) TABLET PO SCH (09:00)
[2022-06-10] MEDS ORDERED: ATORVASTATIN 10 MG TAB PO SCH (09:00)
[2022-06-10] MEDS ORDERED: OXYBUTYNIN 10 MG TAB.ER.24 PO SCH (09:00)
--- NOTE | 2022-06-10 22:28 | P.PN ---
Subjective This is a pleasant 76 years old female with multiple medical problems including migraine headache, hypertension, hyperlipidemia, GERD, sleep apnea, hyperthyroidism presents with severe osteoarthritis of the left knee joint and she underwent left total knee arthroplasty. Today is postoperative day #1. She still complaining of from significant pain at the surgical site, later on in the day she developed headache similar to her migraine headache started on the right side of the eye and goes around to the whole head, which is similar to her previous migraine attacks. Fioricet is added. Hemoglobin 10. Blood pressure is borderline therefore her home blood pressure medication were held 06/10/2022 Patient today is doing better although she has very mild pain in the left kidney, her migraine headache improved. Blood pressure started going up and she is currently on metoprolol 25 which may be increased to-50-100 mg as clinical condition progressed and we will keep monitoring for that. With hemodynamically stable Patient tolerance diarrhea, no abdominal pain. Did not have bowel movement and passing gas Objective - Vital Signs Vital signs: Vital Signs Temp 99.1 F 06/10/22 08:04 Pulse 69 06/10/22 08:04 Resp 18 06/10/22 08:04 BP 140/71 06/10/22 08:04 Pulse Ox 93 L 06/10/22 08:04 FiO2 Intake & Output 06/09/22 06/10/22 06/10/22 18:59 06:59 18:59 Intake Total 1080 Output Total 400 Balance 680 Intake: Oral 1080 Output: Urine 400 Other: Voiding Method Bedside Commode Toilet # Voids 2 1 - Exam GENERAL: The patient is alert and oriented x3, not in any acute distress. Well developed, well nourished. HEENT: Pupils are round and equally reacting to light. EOMI. No scleral icterus. No conjunctival pallor. Normocephalic, atraumatic. No pharyngeal erythema. No thyromegaly. CARDIOVASCULAR: S1 and S2 present. No murmurs, rubs, or gallops. PULMONARY: Chest is clear to auscultation, no wheezing or crackles. -ABDOMEN: Soft, nontender, nondistended, normoactive bowel sounds. No palpable organomegaly. Left kidney wound was dressed in a Place, rest of exam is deferred to surgery team MUSCULOSKELETAL: No joint swelling or deformity. EXTREMITIES: No cyanosis, clubbing, or pedal edema. NEUROLOGICAL: Gross neurological examination did not reveal any focal deficits. SKIN: No rashes. no petechiae. - Labs CBC & Chem 7: 06/09/22 07:01 Assessment and Plan Assessment: Severe osteoarthritis of the left knee status post total knee arthroplasty Migraine headache Hypertension, her currently her blood pressure is borderline Postop blood loss anemia expected Hypothyroidism Estimated GERD Hyperlipidemia Plan: This is a pleasant 76 years old female status post left total knee arthroplasty. Continue with pain management and DVT prophylaxis as per primary team. Start Urised for her headache headache improved Consider increasing metoprolol if her blood pressure improves more that can be increased to 50 mg 100 mg daily Continue with aspirin Labs and medication were reviewed.. Continue same treatment. Continue with symptomatic treatment. Resume home medication. Monitor lytes and vitals. DVT and GI prophylaxis. Further recommendations as per clinical course of the patient DVT prophylaxis: per surgery team GI prophylaxis, thank you for consulting us, we will follow up
== END 2022-06-10 14:38 | disposition home health service (06) ==
LOC: OR 07:31 → 4SSUR 11:00 → OR 06-10 08:45 → 4SSUR 06-10 08:45
PROVIDERS: ADMIT Orthopaedic Surgery; ATTEND Orthopaedic Surgery
DX: M17.12 Unilateral primary osteoarthritis, left knee (principal); M25.762 Osteophyte, left knee; G43.909 Migraine, unspecified, not intractable, without status migrainosus; K21.9 Gastro-esophageal reflux disease without esophagitis; E78.5 Hyperlipidemia, unspecified; I10 Essential (primary) hypertension; G47.30 Sleep apnea, unspecified; E03.9 Hypothyroidism, unspecified; G62.9 Polyneuropathy, unspecified; Z79.1 Long term (current) use of non-steroidal anti-inflammatories (NSAID); Z79.82 Long term (current) use of aspirin; Z79.890 Hormone replacement therapy; Z79.899 Other long term (current) drug therapy; Z88.2 Allergy status to sulfonamides; Z88.5 Allergy status to narcotic agent
CPT/HCPCS: 27447; 96365; 96366 ×2; 96375 ×2; 96376 ×3; 94660; 97116; 97530 ×2; 97161; 97535 ×2; 97165; 64999 ×2; 64448; 76942; 85025; 88300; 73560; 64447; G0378; C1713; C1776; J2250; J1200; J2710; J0690 ×2; J2405; J3010; J2795 ×2; J1885 ×2; J2704; J1170 ×2; J2001

== ENCOUNTER → 2022-06-15 | Outpatient (CLI) | payer MEDICARE ==
--- NOTE | 2022-06-15 16:11 | US ---
EXAMINATION TYPE: US venous doppler duplex LE LT DATE OF EXAM: 06/15/2022 4:03 PM COMPARISON: NONE CLINICAL HISTORY: M25.562 pain in knee, I80.9 PHLEBITIS AND THROMBOP. Left knee replaced 1 week ago. No hx of DVT. Patient does not take blood thinners. SIDE PERFORMED: Left TECHNIQUE: The lower extremity deep venous system is examined utilizing real time linear array sonog malvin with graded compression, doppler sonography and color-flow sonography. VESSELS IMAGED: Common Femoral Vein Deep Femoral Vein Greater Saphenous Vein * Femoral Vein Popliteal Vein Small Saphenous Vein * Proximal Calf Veins (* superficial vessels) Left Leg: Exam is very limited due to body habitus. No evidence of DVT in veins imaged at this time. Calf veins were not well seen at the lower calf and ankle due to great amount of edema. IMPRESSION: No evidence of deep venous thrombosis within the visualized left lower extremity. There is poor visua lization of the calf veins due to surrounding edema.
== END | disposition home or self-care (01) ==
LOC: RADUSWWP 15:02
PROVIDERS: ATTEND Orthopaedic Surgery
DX: I80.9 Phlebitis and thrombophlebitis of unspecified site (principal); M25.562 Pain in left knee

== ENCOUNTER → 2023-09-13 | Outpatient (CLI) | payer MEDICARE ==
--- NOTE | 2023-09-14 09:43 | MM ---
Reason for Exam: Screening (asymptomatic). Last mammogram was performed 1 year(s) and 4 month(s) ago. Patient History: Menarche at age 12. First Full-Term at age 24. Left ovary removed at age 44. Hysterectomy at age 44. Postmenopausal. Patient has history of breast feeding. Currently using Estrogen, for 29 years. Bilateral Benign Excisional Biopsy. Paternal grandmother had breast cancer. Sister had breast cancer under age 50. Risk Values: Coby 5 year model risk: 4.4%. NCI Lifetime model risk: 9.3%. Prior Study Comparison: 08/23/2019 Bilateral Screening Mammogram, [facility]. 10/06/2020 Bilateral Screening Mammogram, [facility]. 05/13/2022 Bilateral MG 3D screening mammo w/cad, [facility]. Tissue Density: There are scattered fibroglandular densities. Findings: Analyzed By CAD. There is no suspicious group of microcalcifications or new suspicious mass. Benign-appearing calcifications bilaterally. Overall Assessment: Negative, BI-RAD 1 Management: Screening Mammogram of both breasts in [address] [facility] will attempt to contact patient to return for supplemental views and ultrasound if indicated. Patient should continue monthly self-breast exams. A clinical breast exam by your physician is recommended on an annual basis. This exam should not preclude additional follow-up of suspicious palpable abnormalities. Note on Coby scores and lifetime risk: 1. A Coby score greater than 3% is considered moderate risk. If this is the case, consider specialist referral to assess eligibility for a risk reducing agent. 2. If overall lifetime risk for the development of breast cancer is 20% or higher, the patient may qualify for future screening with alternating mammogram and breast MRI. Electronically signed and approved by: Blayne Null DO
== END | disposition home or self-care (01) ==
LOC: RADMAMWWP 09:44
PROVIDERS: ATTEND Internal Medicine Geriatric Medicine
DX: Z12.31 Encounter for screening mammogram for malignant neoplasm of breast (principal); Z78.0 Asymptomatic menopausal state; Z80.3 Family history of malignant neoplasm of breast
CPT/HCPCS: 77063; 77067

== ENCOUNTER → 2024-07-09 | Outpatient (CLI) | payer MEDICARE ==
--- NOTE | 2024-07-16 21:24 | BD ---
EXAMINATION TYPE: Axial Bone Density DATE OF EXAM: 07/09/2024 CLINICAL HISTORY: 78 years old Female. ICD-10 CODE: M89.9 DISORDER OF BONE, UNSPECIFIED Height: 63 Weight: 223 FRAX RISK QUESTIONS: Alcohol (3 or more units per day): no Family History (Parent hip fracture): no Glucocorticoids (More than 3mos): no (Ex: prednisone, prednisolone, methylprednisolone, dexamethasone, and hydrocortisone). History of Fracture in Adulthood: no Secondary Osteoporosis: 1. Type 1 Diabetes: no 2. Hyperthyroidism: no 3. Menopause before 45: yes 4. Malnutrition: no 5. Chronic liver disease: no Rheumatoid Arthritis: no Current Tobacco Use: no RISK FACTORS HISTORY OF: Surgery to Spine/Hip(right/left)/Wrist (right/left): Spine When: MEDICATIONS: Thyroid Medications: synthroid How Lon years EXAM MEASUREMENTS: Bone mineral densitometry was performed using the [employer]. Bone mineral density about the R hip (g/cm2): 1.180 Bone mineral density about the L hip (g/cm2): 1.185 T Score values are as follows: -----R Neck: 0.5 -----L Neck: 0.5 -----R Total: 1.4 -----L Total: 1.4 Z Score values are as follows: -----R Neck: 1.7 -----L Neck: 1.7 -----R Total: 2.3 -----L Total: 2.4 Bone mineral density has: increased 3.3 % since study of: 10.20.2020 Bone mineral density about the L Wrist (g/cm2): 0.725 T Score values are as follows: -----Dist. R+U: 2.1 -----Prox. R+U: 0.8 -----Radius total: 0.8 Z Score values are as follows: -----Dist. R+U: 4.5 -----Prox. R+U: 3.2 -----Radius total: 3.2 Bone mineral density has: decreased -1.1 % since study of: 10.20.2020 FRAX%s: The graph provided illustrates a 6.3% chance for a major osteoporotic fx and a 0.4% chance fo r the hips probability for fx in 10 years time. IMPRESSION: Normal (Values between +1 and -1 indicate normal bone mass). Consider repeating this study in 5 year s or sooner if there is some new clinical indication. NOTE: T-SCORE=SD OF THE YOUNG ADULT MEAN. [facility], , 07/16/2024 9:21 PM
== END | disposition home or self-care (01) ==
LOC: RADBDWWP 14:54
PROVIDERS: ATTEND Internal Medicine Geriatric Medicine
DX: M89.9 Disorder of bone, unspecified
CPT/HCPCS: 77080